=== PATIENT | female | born 1965 | race Caucasian/White ===

== ENCOUNTER 2016-10-09 17:11 | Emergency (ER) | payer BC, OTHER ==
[2016-10-09 17:26] VITALS: TEMP 98.4
[2016-10-09 17:32] LABS: BASOPHILS % (AUTO) 1 % (0-3); EOSINOPHILS % (AUTO) 1 % (0-9); HEMATOCRIT 38 % (35-47); MEAN CORPUSCULAR HGB CONC 34.6 gm/dl (32.0-36.0); MEAN CORPUSCULAR VOLUME 84 fL (81-99); MONOCYTES % (AUTO) 11.3 % (0-12); NEUTROPHILS % (AUTO) 50.9 % (37-80)
[2016-10-09 17:41] VITALS: O2SAT 99
[2016-10-09 17:45] LABS: CALCIUM 8.5 mg/dl (8.5-10.1); GLOM FILT RATE 72 mL/min (>60); POTASSIUM 3.6 mMol/L (3.5-5.1); SODIUM 139 mMol/L (136-145)
[2016-10-09] MEDS ORDERED: LIDOCAINE HCL 2% (VISCOUS) 20 ML SOL MT ONE (18:18)
[2016-10-09] MEDS ORDERED: ALUMINUM/MAGNESIUM 30 ML SUS PO ONE (18:18)
[2016-10-09] MEDS ORDERED: ALUMINUM/MAGNESIUM 30 ML SUS ONE (18:19)
[2016-10-09] MEDS ORDERED: LIDOCAINE HCL 2% (VISCOUS) 20 ML SOL ONE (18:19)
[2016-10-09 19:14] VITALS: BP 128/77; PULSE 85; RESP 14
== END 2016-10-09 19:12 | disposition home or self-care (01) ==
LOC: ED 17:11
DX: K21.9 Gastro-esophageal reflux disease without esophagitis (principal)
CPT/HCPCS: 71010; 80048; 84484; 85025; 93005; 99284